=== PATIENT | female | born 1965 | race Caucasian/White ===

== ENCOUNTER → 2017-01-28 | Outpatient (CLI) | payer MEDICAID ==
--- NOTE | 2017-01-28 15:55 | BD ---
EXAMINATION TYPE: MG DEXA axial skeleton. DATE OF EXAM: 01/28/2017 1:37 PM COMPARISON: 07.30.2013 CLINICAL HISTORY: Z78.0 POST MENOPAUSAL Height: 228 Weight: 67 FRAX RISK QUESTIONS: Alcohol (3 or more units per day): NO Family History (Parent hip fracture): NO Glucocorticoids (More than 3mos): YES (Ex: prednisone, prednisolone, methylprednisolone, dexamethasone, and hydrocortisone). History of Fracture in Adulthood: NO Secondary Osteoporosis: NO 1. Type 1 Diabetes: NO 2. Hyperthyroidism: NO 3. Menopause before 45: NO 4. Malnutrition: 5. Chronic liver disease: NO Rheumatoid Arthritis: NO Current Tobacco Use: NO RISK FACTORS HISTORY OF: Other Fractures since Age 50: NO, THUMB...BEFORE AGE 50 Family History of Osteoporosis: NO Smoke tobacco: NO Drink Alcohol: SOCIAL Active: YES Diet low in dairy products/other sources of calcium: NO Postmenopausal woman: HYST AT AGE 46 YRS OLD Adrenal Insufficiency: NO MEDICATIONS: Prednisone or other steroids: ON AND OFF SINCE AGE 26 FOR PREDNISONE, LAST TAKEN 2 YRS AGO How Long: MANY YRS Additional Medications: CALCIUM AND VIT D, MEDS FOR REFLUX Additional History: ULCERATIVE COLITIS. EXAM MEASUREMENTS: Bone mineral densitometry was performed using the [employer] System. Bone mineral density as measured about the Lumbar spine is: ----- L1-L4(G/cm2): 1.206 T Score Values are as follows: ----- L1: -0.5 ----- L2: 0.6 ----- L3: 0.5 ----- L4: 0.1 ----- L1-L4: 0.2 Bone mineral density has: Increased 9.5% since study of: 07.30.2013 Bone mineral density about the R hip (g/cm2): 1.137 Bone mineral density about the L hip (g/cm2): 1.135 T Score values are as follows: -----R Neck: 0.1 -----L Neck: 0.3 -----R Total: 1.0 -----L Total: 1.0 Bone mineral density has: Increased 1.2% since study of: 07.30.2013 FRAX %'S: 4.3% CHANCE OF A MAJOR OSTEOPOROTIC FX AND A 0.1% CHANCE OF HIP FX....PROBABILITY OF FX IN 10 YRS TIME IMPRESSION: Normal (Values between +1 and -1 indicate normal bone mass). Consider repeating this study in 5 year s or sooner if there is some new clinical indication Bone density has improved 9.5% from 2013 within the lumbar spine. Bone density has improved 1.2% from 2013 within the bilateral hips NOTE: T-SCORE=SD OF THE YOUNG ADULT MEAN.
== END ==
LOC: RADBDWWP 12:16
PROVIDERS: ATTEND Obstetrics & Gynecology
DX: Z78.0 Asymptomatic menopausal state (principal)
CPT/HCPCS: 77080

== ENCOUNTER → 2017-01-31 | Outpatient (CLI) | payer MEDICAID ==
--- NOTE | 2017-02-02 10:21 | MM ---
Reason for exam: screening (asymptomatic). Last mammogram was performed 1 year and 7 months ago. History: Took hormonal contraceptives for 4 years. Physical Findings: A clinical breast exam by your physician is recommended on an annual basis and results should be correlated with mammographic findings. MG 3D Screening Mammo W/Cad Bilateral CC and MLO view(s) were taken. Prior study comparison: July 09, 2015, bilateral MG screening mammo w CAD. July 30, 2013, bilateral digital screening mammo w/CAD. March 13, 2012, bilateral digital screening mammo w/CAD. There are scattered fibroglandular densities. No significant changes when compared with prior studies. ASSESSMENT: Negative, BI-RAD 1 RECOMMENDATION: Routine screening mammogram of both breasts in 1 year.
== END | disposition home or self-care (01) ==
LOC: RADMAMWWP 10:54
PROVIDERS: ATTEND Family Medicine
DX: Z12.31 Encounter for screening mammogram for malignant neoplasm of breast (principal)
CPT/HCPCS: 77063; G0202

== ENCOUNTER 2017-04-15 08:19 | Day surgery (SDC) | payer MEDICAID ==
[2017-04-13 11:58] VITALS: BMI 35.0
[~2017-04-15 08:19] MED LIST: LACTATED RINGERS 1,000 ML IV SCH; LIDOCAINE 1% 20 ML VIAL (10MG/ML) FOR IV START INTRADERMA PRN
[2017-04-15 08:34] VITALS: TEMP 98.1
[2017-04-15] MEDS ORDERED: LACTATED RINGERS 1,000 ML IV ONE ×2 (08:42)
[2017-04-15] MEDS ORDERED: PROPOFOL 10 MG/ML 20 ML VIAL IV ONE ×3 (09:49→12:01)
--- NOTE | 2017-04-15 10:07 | P.PCN ---
Date of Procedure: 04/15/17 Preoperative Diagnosis: Postoperative Diagnosis: Procedure(s) Performed: BRIEF HISTORY: Patient is a 52-year-old pleasant 8 female, scheduled for an elective colonoscopy as a part of long-standing history of ulcerative colitis diagnosed at age 22. Last colonoscopy was in 3 years ago which showed no evidence of dysplasia. Patient is in clinical remission. PROCEDURE PERFORMED: Colonoscopy with biopsy. PREOPERATIVE DIAGNOSIS: Long-standing history of ulcerative colitis. IV sedation per Anesthesia. PROCEDURE: After informed consent was obtained, the patient, was brought into the endoscopy unit. IV sedation was administered by Anesthesia under continuous monitoring. Digital rectal examination was normal. Initially the Olympus CF- 160 flexible video colonoscope was then inserted in the rectum, gradually advanced into the cecum without any difficulty. Careful examination was performed as the scope was gradually being withdrawn. Ileocecal valve and the appendiceal orifice were visualized and appeared normal. Prep was excellent. Mucosa of the cecum, ascending colon, transverse colon, descending colon, showed scattered pseudopolyps but no active colitis. However in the sigmoid colon, and rectum the mucosa appeared erythematous and slightly friable consistent with mild active colitis. Biopsies were done throughout the entire colon at every 10 cm intervel.. Retroflexion was performed in the rectum and no lesions were seen. The patient tolerated the procedure well. IMPRESSION: Scattered pseudopolyps throughout the colon but no evidence of active colitis Mild proctosigmoiditis with mucosal erythema and friability but no ulcerations or erosions. RECOMMENDATIONS: Findings of this examination were discussed with the patient as well as a family. She was advised to follow with the biopsy results. If the biopsy did show evidence of active colitis she will need to be maintained on oral mesalamine. She can have a repeat colonoscopy in 2 years. Implants: Indications for Procedure: Operative Findings: Description of Procedure:
[2017-04-15] MEDS ORDERED: fentaNYL (PF) 50 MCG/ML 2 ML AMP ONE (10:08)
[2017-04-15] MEDS ORDERED: LIDOCAINE 1% INJ 10MG/ML (20 ML MDV) ONE (10:08)
[2017-04-15] MEDS ORDERED: MIDAZOLAM 2 MG/2 ML VIAL ONE (10:08)
[2017-04-15] MEDS ORDERED: GLYCOPYRROLATE 0.2 MG/ML 2 ML VIAL ONE (10:08)
[2017-04-15 10:10] VITALS: RESP 16
[2017-04-15 10:35] VITALS: BP 173/96; PULSE 65
== END 2017-04-15 11:13 | disposition home or self-care (01) ==
LOC: ORWHC2ENDO 08:19
PROVIDERS: ATTEND Internal Medicine Gastroenterology
DX: K51.90 Ulcerative colitis, unspecified, without complications (principal); K21.9 Gastro-esophageal reflux disease without esophagitis; Z79.899 Other long term (current) drug therapy; Z88.2 Allergy status to sulfonamides
CPT/HCPCS: 88305; 45380; J2250; J2001; J3010; J2704

== ENCOUNTER → 2017-09-26 | Outpatient (CLI) | payer MEDICAID ==
[2017-09-26 07:52] LABS: Basophils # (A) 0.1 k/uL (0-0.2); Basophils % (A) 1 %; Eosinophils # (A) 0.5 k/uL (0-0.7); Eosinophils % (A) 7 %; HCT 43.8 % (34.0-46.0); HGB 14.2 gm/dL (11.4-16.0); Lymphocytes # (A) 1.5 k/uL (1.0-4.8); Lymphocytes % (A) 21 %; MCH 29.8 pg (25.0-35.0); MCHC 32.4 g/dL (31.0-37.0); Mean Platelet Volume 8.6; Monocytes # (A) 0.3 k/uL (0-1.0); Monocytes % (A) 4 %; Neutrophils # (A) 4.7 k/uL (1.3-7.7); Neutrophils % (A) 65 %; Platelet Count 254 k/uL (150-450); RBC 4.77 m/uL (3.80-5.40); RDW 13.4 % (11.5-15.5); WBC 7.2 k/uL (3.8-10.6)
[2017-09-26 08:07] LABS: ALT 34 U/L (9-52); AST 21 U/L (14-36); Albumin 4.3 g/dL (3.5-5.0); Alkaline Phosphatase 85 U/L (38-126); Anion Gap 12 mmol/L; Blood Urea Nitrogen 15 mg/dL (7-17); Calcium 9.8 mg/dL (8.4-10.2); Carbon Dioxide 28 mmol/L (22-30); Chloride 102 mmol/L (98-107); Cholesterol 222 mg/dL (<200); Glucose 137 mg/dL (74-99); HDL Cholesterol 58 mg/dL (40-60); LDL Cholesterol,Calculated 131 mg/dL (0-99); Potassium 5.1 mmol/L (3.5-5.1); Sodium 142 mmol/L (137-145); Total Bilirubin 0.5 mg/dL (0.2-1.3); Total Protein 7.7 g/dL (6.3-8.2); Triglycerides 167 mg/dL (<150)
[2017-09-26 09:45] LABS: Erythrocyte Sedimentation Rate 19 mm/hr (0-20)
[2017-09-26 15:36] LABS: Folate, Serum 8.5 ng/mL
[2017-09-26 17:08] LABS: Hepatitis A Antibody IgM Non-Reactive (Non-Reactive); Hepatitis B Core IgM Non-Reactive (Non-Reactive)
[2017-09-26 20:08] LABS: Hemoglobin A1C 6.5 % (4.0-6.0)
[2017-09-27 19:05] LABS: Estrogens Total 117 pg/mL
== END | disposition home or self-care (01) ==
LOC: LABWHC1 06:53
PROVIDERS: ATTEND Family Medicine
DX: Z00.00 Encounter for general adult medical examination without abnormal findings (principal); E89.41 Symptomatic postprocedural ovarian failure; R41.3 Other amnesia; R73.9 Hyperglycemia, unspecified; Z11.59 Encounter for screening for other viral diseases
CPT/HCPCS: 36415; 80053; 80061; 80074; 82607; 82672; 82746; 83001; 83002; 83036; 84260; 84402; 84403; 84443; 85025; 85652; 86780

== ENCOUNTER → 2018-05-05 | Outpatient (CLI) | payer MEDICAID ==
--- NOTE | 2018-05-08 10:16 | MM ---
Reason for exam: screening (asymptomatic). Last mammogram was performed 1 year and 3 months ago. History: Took hormonal contraceptives for 4 years. Physical Findings: A clinical breast exam by your physician is recommended on an annual basis and results should be correlated with mammographic findings. MG 3D Screening Mammo W/Cad Bilateral CC and MLO view(s) were taken. Prior study comparison: January 31, 2017, bilateral MG 3d screening mammo w/cad. July 09, 2015, bilateral MG screening mammo w CAD. The breast tissue is heterogeneously dense. This may lower the sensitivity of mammography. Stable benign calcifications. There is no discrete abnormality. No significant changes when compared with prior studies. ASSESSMENT: Benign, BI-RAD 2 RECOMMENDATION: Routine screening mammogram of both breasts in 1 year.
== END | disposition home or self-care (01) ==
LOC: RADMAMWWP 11:06
PROVIDERS: ATTEND Obstetrics & Gynecology
DX: Z12.31 Encounter for screening mammogram for malignant neoplasm of breast (principal)
CPT/HCPCS: 77063; 77067

== ENCOUNTER → 2018-05-05 | Outpatient (CLI) | payer MEDICAID ==
[2018-05-05 15:25] LABS: Basophils # (A) 0.1 k/uL (0-0.2); Basophils % (A) 1 %; Eosinophils # (A) 0.4 k/uL (0-0.7); Eosinophils % (A) 5 %; HCT 43.8 % (34.0-46.0); HGB 14.3 gm/dL (11.4-16.0); Lymphocytes # (A) 1.8 k/uL (1.0-4.8); Lymphocytes % (A) 21 %; MCH 30.5 pg (25.0-35.0); MCHC 32.7 g/dL (31.0-37.0); MCV 93.3 fL (80.0-100.0); Mean Platelet Volume 8.5; Monocytes # (A) 0.4 k/uL (0-1.0); Monocytes % (A) 5 %; Neutrophils # (A) 5.5 k/uL (1.3-7.7); Neutrophils % (A) 67 %; Platelet Count 200 k/uL (150-450); RDW 13.8 % (11.5-15.5); WBC 8.2 k/uL (3.8-10.6)
[2018-05-05 15:40] LABS: C Reactive Protein 8.7 mg/L (<10.0); Uric Acid 5.1 mg/dL (3.7-7.4)
--- NOTE | 2018-05-05 16:43 | XR ---
Right foot HISTORY: Right foot pain 3 views of the right foot Soft tissue swelling suspected first digit right foot. Bone mineralization, joint spaces and alignmen t are maintained. No evident periostitis. There is a plantar calcaneal spur. No fracture or dislocati on evident. IMPRESSION: Soft tissue swelling first digit. Follow-up as indicated.
[2018-05-05 16:53] LABS: Erythrocyte Sedimentation Rate 8 mm/hr (0-20)
[2018-05-06 00:44] LABS: Rheumatoid Factor 8 IU/mL (0-15)
[2018-05-06 01:08] LABS: Cyclic Citrullinated Pep IgG NEGATIVE (NEGATIVE)
== END | disposition home or self-care (01) ==
LOC: LABWHC1 13:36
PROVIDERS: ATTEND Podiatrist Foot & Ankle Surgery
DX: M79.89 Other specified soft tissue disorders (principal); M79.676 Pain in unspecified toe(s); M19.90 Unspecified osteoarthritis, unspecified site; B99.9 Unspecified infectious disease
CPT/HCPCS: 36415; 84550; 85025; 85652; 86038; 86140; 86200; 86431

== ENCOUNTER → 2018-06-30 | Outpatient (CLI) | payer MEDICAID ==
[2018-06-30 13:26] LABS: ALT 34 U/L (9-52); AST 26 U/L (14-36); Albumin 4.4 g/dL (3.5-5.0); Alkaline Phosphatase 76 U/L (38-126); Anion Gap 11 mmol/L; Blood Urea Nitrogen 15 mg/dL (7-17); Calcium 9.7 mg/dL (8.4-10.2); Carbon Dioxide 24 mmol/L (22-30); Chloride 103 mmol/L (98-107); Glucose 104 mg/dL (74-99); Potassium 4.9 mmol/L (3.5-5.1); Sodium 138 mmol/L (137-145); Total Bilirubin 1.3 mg/dL (0.2-1.3); Total Protein 7.5 g/dL (6.3-8.2)
== END | disposition home or self-care (01) ==
LOC: LABWHC1 12:50
PROVIDERS: ATTEND Family Medicine
DX: E11.9 Type 2 diabetes mellitus without complications (principal); E89.41 Symptomatic postprocedural ovarian failure
CPT/HCPCS: 36415; 80053; 82672; 84270; 84402; 84403

== ENCOUNTER → 2019-03-19 | Outpatient (CLI) | payer BC ==
[2019-03-19 07:36] LABS: Basophils % (A) 1 %; Eosinophils # (A) 0.2 k/uL (0-0.7); Eosinophils % (A) 3 %; HGB 14.4 gm/dL (11.4-16.0); Lymphocytes # (A) 1.9 k/uL (1.0-4.8); Lymphocytes % (A) 33 %; MCH 31.1 pg (25.0-35.0); MCHC 32.8 g/dL (31.0-37.0); MCV 94.8 fL (80.0-100.0); Mean Platelet Volume 8.9; Monocytes # (A) 0.3 k/uL (0-1.0); Monocytes % (A) 5 %; Neutrophils # (A) 3.3 k/uL (1.3-7.7); Neutrophils % (A) 56 %; Platelet Count 179 k/uL (150-450); RBC 4.64 m/uL (3.80-5.40); RDW 13.7 % (11.5-15.5)
[2019-03-19 10:38] LABS: African American GFR (CKD) 118.1 (60.0-200.0); Albumin 4.3 g/dL (3.80-4.90); Albumin/Globulin Ratio 1.95 (1.60-3.17); Anion Gap 5.6 mmol/L (4.00-12.00); Calcium 9.2 mg/dL (8.7-10.3); Carbon Dioxide 28.4 mmol/L (21.6-31.8); Globulin 2.2 g/dL (1.6-3.3); Potassium 4.7 mmol/L (3.5-5.5); Total Bilirubin 0.6 mg/dL (0.2-1.2); Total Protein 6.5 g/dL (6.2-8.2)
== END | disposition home or self-care (01) ==
LOC: LABWHC1 06:53
PROVIDERS: ATTEND Family Medicine
DX: Z00.00 Encounter for general adult medical examination without abnormal findings (principal)
CPT/HCPCS: 36415; 80053; 80061; 84443; 85025

== ENCOUNTER → 2019-07-02 | Outpatient (CLI) | payer BC ==
--- NOTE | 2019-07-04 08:25 | MM ---
Reason for exam: screening (asymptomatic). Last mammogram was performed 1 year and 2 months ago. History: Took hormonal contraceptives for 4 years. Physical Findings: A clinical breast exam by your physician is recommended on an annual basis and results should be correlated with mammographic findings. MG 3D Screening Mammo W/Cad Bilateral CC and MLO view(s) were taken. Prior study comparison: May 05, 2018, bilateral MG 3d screening mammo w/cad. January 31, 2017, bilateral MG 3d screening mammo w/cad. The breast tissue is almost entirely fat. No significant changes when compared with prior studies. ASSESSMENT: Negative, BI-RAD 1 RECOMMENDATION: Routine screening mammogram of both breasts in 1 year.
== END | disposition home or self-care (01) ==
LOC: RADMAMWWP 13:47
PROVIDERS: ATTEND Family Medicine
DX: Z12.31 Encounter for screening mammogram for malignant neoplasm of breast (principal)
CPT/HCPCS: 77063; 77067

== ENCOUNTER → 2020-04-10 | Outpatient (CLI) | payer MEDICAID, BC ==
[2020-04-10 10:12] LABS: Basophils # (A) 0.1 k/uL (0-0.2); Basophils % (A) 1 %; Eosinophils # (A) 0.3 k/uL (0-0.7); Eosinophils % (A) 4 %; HCT 45.9 % (34.0-46.0); HGB 14.6 gm/dL (11.4-16.0); Lymphocytes # (A) 1.8 k/uL (1.0-4.8); Lymphocytes % (A) 29 %; MCH 30.6 pg (25.0-35.0); MCHC 31.8 g/dL (31.0-37.0); MCV 96.3 fL (80.0-100.0); Mean Platelet Volume 8.9; Monocytes # (A) 0.3 k/uL (0-1.0); Monocytes % (A) 4 %; Neutrophils # (A) 3.6 k/uL (1.3-7.7); Neutrophils % (A) 59 %; Platelet Count 207 k/uL (150-450); RBC 4.76 m/uL (3.80-5.40); RDW 12.9 % (11.5-15.5); WBC 6.1 k/uL (3.8-10.6)
[2020-04-10 10:23] LABS: ALT 21 U/L (4-34); AST 25 U/L (14-36); African American GFR (CKD) >90 (>60 ml/min/1.73 sqM); Albumin 4.5 g/dL (3.5-5.0); Alkaline Phosphatase 83 U/L (38-126); Anion Gap 8 mmol/L; Blood Urea Nitrogen 14 mg/dL (7-17); Calcium 9.6 mg/dL (8.4-10.2); Carbon Dioxide 24 mmol/L (22-30); Chloride 107 mmol/L (98-107); Cholesterol 256 mg/dL (<200); Glucose 114 mg/dL (74-99); HDL Cholesterol 75 mg/dL (40-60); LDL Cholesterol,Calculated 155 mg/dL (0-99); Non-African American GFR(CKD) >90 (>60 ml/min/1.73 sqM); Potassium 5.2 mmol/L (3.5-5.1); Sodium 139 mmol/L (137-145); Total Protein 7.7 g/dL (6.3-8.2); Triglycerides 131 mg/dL (<150)
--- NOTE | 2020-04-10 13:18 | ECHOS ---
STRESS ECHOCARDIOGRAM LUMASON: - Vial INDICATIONS: Chest pain. MEDICATIONS: BASELINE HEART RATE: 85 BASELINE BLOOD PRESSURE: 146/98 MAXIMUM HEART RATE: 155 MAXIMUM BLOOD PRESSURE: 211/89 85% MPHR: 139 100% MPHR: 163 METS: 7.3 MAXIMUM STAGE REACHED: II TOTAL EXERCISE TIME: 6:00 CLINICAL INFORMATION: DATE OF SERVICE: 04/10/2020 Baseline EKG revealed normal sinus rhythm without significant ST-T changes. Patient walked on standard Eduardo protocol for 6 minutes, achieved a maximal heart rate of 155 beats per minute which is well above 85% of predicted maximal. She developed fatigue, shortness of breath. Rare PVCs. She did not have any angina or arrhythmia. EKG did not reveal any ST-segment changes to indicate ischemia. By EKG criteria, this is a negative stress test with limited exercise capacity. Peak blood pressure was 211/89. There was hypertensive response to exercise. Baseline echo images revealed normal wall motion wall thickening of all segments. To enhance the quality of images, echo contrast was administered. At peak exercise, there was good augmentation of left ventricular wall motion and wall thickening of all segments suggesting that there is no stress-induced ischemia on this study. IMPRESSION: 1. By EKG criteria, this is a negative stress test with limited exercise capacity. Patient had hypertensive response to exercise. 2. Normal stress echocardiogram without evidence of ischemia. MMODL / IJN: [id number] /
== END | disposition home or self-care (01) ==
LOC: RADNMMAIN 08:52
PROVIDERS: ATTEND Family Medicine
DX: I10 Essential (primary) hypertension (principal); R07.9 Chest pain, unspecified
CPT/HCPCS: 93351; 80061; 80053; 84443; 85025; 36415; Q9950

== ENCOUNTER → 2020-08-12 | Outpatient (CLI) | payer BC ==
--- NOTE | 2020-08-13 12:10 | MM ---
Reason for exam: screening (asymptomatic). Last mammogram was performed 1 year and 1 month ago. History: Took hormonal contraceptives for 4 years. Physical Findings: A clinical breast exam by your physician is recommended on an annual basis and results should be correlated with mammographic findings. MG Screening Mammo w CAD Bilateral CC and MLO view(s) were taken. Prior study comparison: July 02, 2019, bilateral MG 3d screening mammo w/cad. May 05, 2018, bilateral MG 3d screening mammo w/cad. The breast tissue is almost entirely fat. No significant changes when compared with prior studies. ASSESSMENT: Benign, BI-RAD 2 RECOMMENDATION: Routine screening mammogram of both breasts in 1 year.
== END | disposition home or self-care (01) ==
LOC: RADMAMWWP 09:15
PROVIDERS: ATTEND Family Medicine
DX: Z12.31 Encounter for screening mammogram for malignant neoplasm of breast (principal)
CPT/HCPCS: 77067

== ENCOUNTER 2020-09-10 07:16 | Day surgery (SDC) | payer BC ==
[2020-09-03 11:32] VITALS: BMI 30.1
[~2020-09-10 07:16] MED LIST changes: -LIDOCAINE 1% 20 ML VIAL (10MG/ML) FOR IV START INTRADERMA PRN
[2020-09-10] MEDS ORDERED: LACTATED RINGERS 1,000 ML IV ONE (07:46)
[2020-09-10 08:07] VITALS: RESP 16; TEMP 97.8
[2020-09-10 08:07] LABS: Glucose,Whole Blood 116 mg/dL (75-99)
[2020-09-10] MEDS ORDERED: fentaNYL (PF) 50 MCG/ML 2 ML AMP ONE (08:32)
[2020-09-10] MEDS ORDERED: LIDOCAINE 1% INJ 10MG/ML (20 ML MDV) ONE (08:32)
[2020-09-10] MEDS ORDERED: PROPOFOL 10 MG/ML 20 ML VIAL IV ONE (08:32)
--- NOTE | 2020-09-10 08:54 | P.PCN ---
Date of Procedure: 09/10/20 Procedure(s) Performed: BRIEF HISTORY: Patient is a 55-year-old pleasant female scheduled for an elective colonoscopy as a part of evaluation of long-standing history of ulcerative colitis diagnosed. At age 22. Her last colonoscopy was 3 years ago. PROCEDURE PERFORMED: Colonoscopy with random biopsy. PREOPERATIVE DIAGNOSIS: Long-standing history of ulcerative colitis. IV sedation per Anesthesia. PROCEDURE: After informed consent was obtained, the patient, was brought into the endoscopy unit. IV sedation was administered by Anesthesia under continuous monitoring. Digital rectal examination was normal. Initially the Olympus CF-160 flexible video colonoscope was then inserted in the rectum, gradually advanced into the cecum without any difficulty. Careful examination was performed as the scope was gradually being withdrawn. Ileocecal valve and the appendiceal orifice were visualized and appeared normal. Prep was excellent. Mucosa of the cecum, ascending colon, transverse colon, appeared normal. There was scattered pseudopolyps in the descending and sigmoid colon descending colon, sigmoid colon, and rectum appeared normal. Random biopsies were done from the cecum to rectum at every 10 cm intervals. Retroflexion was performed in the rectum and no lesions were seen. The patient tolerated the procedure well. IMPRESSION: Scattered pseudopolyps noted in the colon but no evidence of active colitis or colorectal neoplasia RECOMMENDATIONS: Findings of this examination were discussed with the patient as well as a family. She was advised to follow with the biopsy results.. If the biopsy shows no evidence of dysplasia he can have a repeat colonoscopy in 2- 3 years.
[2020-09-10 09:07] VITALS: BP 130/80; PULSE 78
== END 2020-09-10 09:27 | disposition home or self-care (01) ==
LOC: ORWHC2ENDO 07:16
PROVIDERS: ATTEND Internal Medicine Gastroenterology
DX: K51.90 Ulcerative colitis, unspecified, without complications (principal); K63.89 Other specified diseases of intestine; E11.9 Type 2 diabetes mellitus without complications; Z88.2 Allergy status to sulfonamides; K21.9 Gastro-esophageal reflux disease without esophagitis; Z79.84 Long term (current) use of oral hypoglycemic drugs; Z79.899 Other long term (current) drug therapy; Z90.710 Acquired absence of both cervix and uterus; Z90.89 Acquired absence of other organs
CPT/HCPCS: 88305; 45380; J2001; J3010; J2704

== ENCOUNTER → 2021-07-06 | Outpatient (CLI) | payer BC ==
--- NOTE | 2021-07-06 14:00 | MM ---
Reason for exam: clinical finding. Last mammogram was performed 11 months ago. History: Took hormonal contraceptives for 4 years. Took other hormone beginning at age 54. Physical Findings: Nurse Summary: 0.5-1cm nodule in the left breast at 10-11 o'clock (nurse db). MG 3D Diag Mammo W/Cad LT CC and MLO view(s) were taken of the left breast. Prior study comparison: August 12, 2020, bilateral MG screening mammo w CAD. July 02, 2019, bilateral MG 3d screening mammo w/cad. There are scattered fibroglandular densities. 1.1cm nodule at 12 o'clock approximately 5.4cm from nipple. These results were verbally communicated with the patient and result sheet given to the patient on 07/06/21. ASSESSMENT: Incomplete: need additional imaging evaluation, BI-RAD 0 RECOMMENDATION: Ultrasound of the left breast.
--- NOTE | 2021-07-06 14:02 | USB ---
Reason for exam: additional evaluation requested from abnormal screening. History: Took hormonal contraceptives for 4 years. Took other hormone beginning at age 54. US Breast Limited LT Technologist: Rachel Gillis Left limited breast ultrasound including focal area of concern, retroareolar and axilla demonstrates a 1.1 x 0.9 x 0.4cm questionable hematoma versus cyst at 11 o'clock. These results were verbally communicated with the patient and result sheet given to the patient on 07/06/21. ASSESSMENT: Probably benign, BI-RAD 3 RECOMMENDATION: Ultrasound of the left breast in 3 months. Manage patient on a clinical basis.
== END | disposition home or self-care (01) ==
LOC: RADMAMWWP 12:41
PROVIDERS: ATTEND Obstetrics & Gynecology
DX: N64.89 Other specified disorders of breast (principal)
CPT/HCPCS: 77061; 77065

== ENCOUNTER → 2021-08-29 | Outpatient (CLI) | payer BC ==
[2021-08-29 13:01] LABS: Basophils # (A) 0.05 X 10*3/uL (0.00-0.10); Basophils % (A) 0.9 %; Eosinophils # (A) 0.26 X 10*3/uL (0.04-0.35); Eosinophils % (A) 4.9 %; HCT 43.9 % (37.2-46.3); HGB 14.4 g/dL (12.0-15.0); Lymphocytes # (A) 1.81 X 10*3/uL (0.90-5.00); MCH 31.2 pg (27.0-32.0); MCHC 32.8 g/dL (32.0-37.0); MCV 95.2 fL (80.0-97.0); Monocytes # (A) 0.39 X 10*3/uL (0.20-1.00); Monocytes % (A) 7.3 %; Neutrophils # (A) 2.79 X 10*3/uL (1.80-7.70); Neutrophils % (A) 52.5 %; Platelet Count 213 X 10*3/uL (140-440); RBC 4.61 X 10*6/uL (4.10-5.20); RDW 12.7 % (11.5-14.5); WBC 5.32 X 10*3/uL (4.50-10.00)
[2021-08-29 13:23] LABS: ALT 23 U/L (8-44); AST 21 U/L (13-35); African American GFR (CKD) 114.1 (60.0-200.0); Albumin 4.5 g/dL (3.8-4.9); Albumin/Globulin Ratio 1.78 (1.60-3.17); Alkaline Phosphatase 91 U/L (41-126); BUN/Creat Ratio 24.26 Ratio (12.00-20.00); Blood Urea Nitrogen 15.5 mg/dL (9.0-27.0); Calcium 9.3 mg/dL (8.7-10.3); Chloride 103 mmol/L (96-109); Chol/HDL Ratio 3.84 Ratio; Globulin 2.5 g/dL (1.6-3.3); Glucose 89 mg/dL (70-110); LDL Cholesterol,Calculated 159.7 mg/dL (0.0-131.0); Non-African American GFR(CKD) 98.4 (60.0-200.0); Potassium 4.8 mmol/L (3.5-5.5); Sodium 140 mmol/L (135-145); VLDL Calculation 19.96 mg/dL (5.00-40.00)
== END | disposition home or self-care (01) ==
LOC: LABWHC1 09:53
PROVIDERS: ATTEND Family Medicine
DX: Z00.00 Encounter for general adult medical examination without abnormal findings (principal)
CPT/HCPCS: 36415; 80053; 80061; 84443; 85025

== ENCOUNTER → 2021-10-15 | Outpatient (CLI) | payer BC ==
--- NOTE | 2021-10-15 15:21 | BD ---
EXAMINATION TYPE: Axial Bone Density DATE OF EXAM: 10/15/2021 COMPARISON: 01.28.2017 CLINICAL HISTORY: 56 YR OLD FEMALE.....ICD-10 CODE: Z78.0 MENOPAUSAL Height: 65.5 Weight: 210 FRAX RISK QUESTIONS: Family History (Parent hip fracture): NO FX RISK FACTORS HISTORY OF: Family History of Osteoporosis: YES, MOTHER NO FX Active: YES Postmenopausal woman: YES, AT AGE 48 HYST AT 43 PARTIAL Take estrogen and/or progesterone medications: TESTOSTERONE, X 4 YRS, NONE NOW Hyperparathyroidism: NO Adrenal Insufficiency: NO MEDICATIONS: Additional Medications: MULTIVITAMIN WITH CA AND VIT D Additional History: NOTHING TO NOTE HERE EXAM MEASUREMENTS: Bone mineral densitometry was performed using the [employer] System. Bone mineral density as measured about the Lumbar spine is: ----- L1-L4(G/cm2): 1.146 T Score Values are as follows: ----- L1: -0.7 ----- L2: 0.1 ----- L3: 0.0 ----- L4: -0.6 ----- L1-L4: -0.3 Bone mineral density has: Decreased -5.8% since study of: 01.28.2017 Bone mineral density about the R hip (g/cm2): 1.073 Bone mineral density about the L hip (g/cm2): 1.063 T Score values are as follows: -----R Neck: -0.5 -----L Neck: -0.5 -----R Total: 0.5 -----L Total: 0.4 Bone mineral density has: Decreased -6.0% since study of: 01.28.2017 FRAX%s: THERE IS A 5.8% CHANCE FOR A MAJOR OSTEOPOROTIC FX AND A 0.2% FOR HIP.......PROBABILITY FO R FX IN 10 YRS TIME IMPRESSION: Normal (Values between +1 and -1 indicate normal bone mass). Consider repeating this study in 5 year s or sooner if there is some new clinical indication. NOTE: T-SCORE=SD OF THE YOUNG ADULT MEAN.
== END | disposition home or self-care (01) ==
LOC: RADBDWWP 08:17
PROVIDERS: ATTEND Obstetrics & Gynecology
DX: Z78.0 Asymptomatic menopausal state (principal)
CPT/HCPCS: 77080

== ENCOUNTER → 2021-10-29 | Outpatient (CLI) | payer BC ==
--- NOTE | 2021-10-29 14:43 | MM ---
Reason for exam: follow-up at short interval from prior study. Last mammogram was performed 4 months ago. History: Took hormonal contraceptives for 4 years. Took other hormone beginning at age 54. Physical Findings: Nurse did not find any significant physical abnormalities on exam. MG 3D Diag Mammo W/Cad JENNY Bilateral CC and MLO view(s) were taken. Prior study comparison: July 06, 2021, left breast MG 3d diag mammo w/cad LT. August 12, 2020, bilateral MG screening mammo w CAD. There are scattered fibroglandular densities. Residual vague density superior left MLO, post 4 months, density not on CC view. No significant new findings when compared with previous films. These results were verbally communicated with the patient and result sheet given to the patient on 10/29/21. ASSESSMENT: Incomplete: need additional imaging evaluation, BI-RAD 0 RECOMMENDATION: Ultrasound of the left breast.
--- NOTE | 2021-10-29 14:45 | USB ---
Reason for exam: additional evaluation requested from abnormal screening. History: Took hormonal contraceptives for 4 years. Took other hormone beginning at age 54. US Breast Limited LT Technologist: Rachel Gillis Left limited breast ultrasound including focal area of concern, retroareolar and axilla demonstrates no cystic or solid lesion seen. Scanned 10-12 o'clock. Previous area not visualized. These results were verbally communicated with the patient and result sheet given to the patient on 10/29/21. ASSESSMENT: Probably benign, BI-RAD 3 RECOMMENDATION: Follow-up diagnostic mammogram of the left breast in 6 months.
== END | disposition home or self-care (01) ==
LOC: RADMAMWWP 13:37
PROVIDERS: ATTEND Obstetrics & Gynecology
DX: R92.8 Other abnormal and inconclusive findings on diagnostic imaging of breast (principal)
CPT/HCPCS: 77062; 77066

== ENCOUNTER → 2023-02-11 | Outpatient (CLI) | payer BC ==
[2023-02-11 11:09] LABS: Basophils # (A) 0.06 X 10*3/uL (0.00-0.10); Basophils % (A) 1.1 %; Eosinophils % (A) 10.7 %; HCT 43.5 % (37.2-46.3); HGB 14.2 g/dL (12.0-15.0); Immature Grans, Automated 0.5 %; Lymphocytes # (A) 2.07 X 10*3/uL (0.90-5.00); Lymphocytes % (A) 36.8 %; MCH 31.3 pg (27.0-32.0); MCHC 32.6 g/dL (32.0-37.0); Mean Platelet Volume 10.4 fL (9.5-12.2); Monocytes # (A) 0.43 X 10*3/uL (0.20-1.00); Monocytes % (A) 7.6 %; NRBC Per 100 WBC 0 /100 WBCS (0.0-0.0); Neutrophils # (A) 2.44 X 10*3/uL (1.80-7.70); Neutrophils % (A) 43.3 %; Platelet Count 221 X 10*3/uL (140-440); RBC 4.53 X 10*6/uL (4.10-5.20); WBC 5.63 X 10*3/uL (4.50-10.00)
[2023-02-11 16:50] LABS: Chol/HDL Ratio 4.04 Ratio; LDL Cholesterol,Calculated 138.9 mg/dL (0.0-131.0)
== END | disposition home or self-care (01) ==
LOC: LABWHC1 07:43
PROVIDERS: ATTEND Nurse Practitioner Adult Health
DX: E11.9 Type 2 diabetes mellitus without complications (principal)
CPT/HCPCS: 36415; 80061; 84439; 84443; 85025

== ENCOUNTER → 2023-03-08 | Outpatient (CLI) | payer BC ==
[2023-03-08 08:23] LABS: Basophils # (A) 0.1 k/uL (0-0.2); Basophils % (A) 1 %; Eosinophils # (A) 0.7 k/uL (0-0.7); Eosinophils % (A) 8 %; HCT 42.9 % (34.0-46.0); HGB 13.5 gm/dL (11.4-16.0); Lymphocytes # (A) 1.1 k/uL (1.0-4.8); Lymphocytes % (A) 13 %; MCH 31.2 pg (25.0-35.0); MCHC 31.5 g/dL (31.0-37.0); MCV 99.1 fL (80.0-100.0); Mean Platelet Volume 8.5; Monocytes # (A) 0.5 k/uL (0-1.0); Monocytes % (A) 6 %; Neutrophils # (A) 5.9 k/uL (1.3-7.7); Neutrophils % (A) 71 %; Platelet Count 266 k/uL (150-450); RBC 4.33 m/uL (3.80-5.40); RDW 12.7 % (11.5-15.5); WBC 8.3 k/uL (3.8-10.6)
== END | disposition home or self-care (01) ==
LOC: LABWHC1 07:20
PROVIDERS: ATTEND Nurse Practitioner Adult Health
DX: K92.1 Melena (principal)
CPT/HCPCS: 36415; 85025

== ENCOUNTER → 2023-05-09 | Outpatient (CLI) | payer BC ==
--- NOTE | 2023-05-09 14:46 | USB ---
Patient History: Menarche at age 9. First Full-Term at age 24. Hysterectomy at age 44. Patient used Hormonal Contraceptives for 4 years. Risk Values: Pat 5 year model risk: 1.8%. NCI Lifetime model risk: 8.9%. Prior Study Comparison: 08/12/2020 Bilateral Screening Mammogram, [facility]. 07/06/2021 Left Diagnostic Mammogram, [facility]. 10/29/2021 Bilateral Diagnostic Mammogram, [facility]. Findings: Imaged: Ultrasound imaging of: All 4 quadrants, the retroareolar region and axilla. No evidence for organizing fluid collection or mass. Overall Assessment: Negative, BI-RAD 1 Management: Screening Mammogram of both breasts in 1 year. A clinical breast exam by your physician is recommended on an annual basis and results should be correlated with mammographic findings. This exam should not preclude additional follow-up of suspicious palpable abnormalities. Results were given to the patient verbally at the time of exam. Electronically signed and approved by: Alan Danielle DO
--- NOTE | 2023-05-09 14:46 | MM ---
Reason for Exam: Additional evaluation requested from prior study. Last mammogram was performed 1 year(s) and 6 month(s) ago. Patient History: Menarche at age 9. First Full-Term at age 24. Hysterectomy at age 44. Patient used Hormonal Contraceptives for 4 years. Risk Values: Pat 5 year model risk: 1.8%. NCI Lifetime model risk: 8.9%. Prior Study Comparison: 03/13/2012 Bilateral Screening Mammogram, [facility]. 07/30/2013 Bilateral Screening Mammogram, [facility]. 07/09/2015 Bilateral Screening Mammogram, [facility]. 01/31/2017 Bilateral Screening Mammogram, [facility]. 05/05/2018 Bilateral Screening Mammogram, [facility]. 07/02/2019 Bilateral Screening Mammogram, [facility]. 08/12/2020 Bilateral Screening Mammogram, [facility]. 07/06/2021 Left Diagnostic Mammogram, [facility]. 07/06/2021 Left Diagnostic Ultrasound, [facility]. 10/29/2021 Bilateral Diagnostic Mammogram, [facility]. 10/29/2021 Left Diagnostic Ultrasound, [facility]. Tissue Density: The breast tissue is almost entirely fat. Findings: Analyzed By CAD. Right breast biopsy clip. No suspicious finding in the left breast. No new suspicious masses, calcifications or distortions. Overall Assessment: Incomplete: need additional imaging evaluation, BI-RAD 0 Management: Diagnostic Breast Ultrasound of the right breast. Results were given to the patient verbally at the time of exam. Patient should continue monthly self-breast exams. A clinical breast exam by your physician is recommended on an annual basis. This exam should not preclude additional follow-up of suspicious palpable abnormalities. Note on Pat scores and lifetime risk: 1. A Pat score greater than 3% is considered moderate risk. If this is the case, consider specialist referral to assess eligibility for a risk reducing agent. 2. If overall lifetime risk for the development of breast cancer is 20% or higher, the patient may qualify for future screening with alternating mammogram and breast MRI. Electronically signed and approved by: Alan Danielle DO
== END | disposition home or self-care (01) ==
LOC: RADMAMWWP 12:24
PROVIDERS: ATTEND Family Medicine
DX: R92.8 Other abnormal and inconclusive findings on diagnostic imaging of breast (principal)
CPT/HCPCS: 77062; 77066

== ENCOUNTER → 2023-07-21 | Outpatient (CLI) | payer BC | LOC: LABWHC1 11:44 | PROVIDERS: ATTEND Family Medicine | DX: Z53.9 Procedure and treatment not carried out, unspecified reason (principal) ==

== ENCOUNTER → 2023-08-09 | Outpatient (CLI) | payer BC ==
[~2023-08-09] MED LIST changes: +IRON SUCROSE 200 MG in SODIUM CHLORIDE 0.9% 100 ML IVPB NR; -LACTATED RINGERS 1,000 ML IV SCH; +SODIUM CHLORIDE 0.9% 500 ML 500 ML in EMPTY BAG 1 BAG IV PRN
[2023-08-09 14:39] VITALS: BP 151/90; PULSE 93; RESP 16; TEMP 97.8
== END ==
LOC: PROCWHC3 14:04
PROVIDERS: ATTEND Family Medicine
DX: D64.9 Anemia, unspecified (principal)
CPT/HCPCS: 96365; J1756

== ENCOUNTER → 2023-08-16 | Outpatient (CLI) | payer BC ==
[2023-08-16 14:55] LABS: Basophils # (A) 0.1 k/uL (0-0.2); Basophils % (A) 1 %; Eosinophils # (A) 0.2 k/uL (0-0.7); Eosinophils % (A) 3 %; HCT 41.7 % (34.0-46.0); HGB 13.2 gm/dL (11.4-16.0); Lymphocytes # (A) 1.6 k/uL (1.0-4.8); Lymphocytes % (A) 21 %; MCH 27.9 pg (25.0-35.0); MCHC 31.8 g/dL (31.0-37.0); MCV 87.7 fL (80.0-100.0); Mean Platelet Volume 8.6; Monocytes # (A) 0.3 k/uL (0-1.0); Monocytes % (A) 4 %; Neutrophils # (A) 5.2 k/uL (1.3-7.7); Neutrophils % (A) 70 %; Platelet Count 271 k/uL (150-450); RBC 4.75 m/uL (3.80-5.40); RDW 14.5 % (11.5-15.5); WBC 7.5 k/uL (3.8-10.6)
[2023-08-16 15:05] LABS: ALT 18 U/L (4-34); AST 21 U/L (14-36); African American GFR (CKD) 86 (>60 ml/min/1.73 sqM); Albumin 4.6 g/dL (3.5-5.0); Albumin/Globulin Ratio 1.4; Alkaline Phosphatase 84 U/L (38-126); Anion Gap 10 mmol/L; Blood Urea Nitrogen 20 mg/dL (7-17); Calcium 10.4 mg/dL (8.4-10.2); Carbon Dioxide 27 mmol/L (22-30); Chloride 101 mmol/L (98-107); Globulin 3.2 g/dL; Glucose 156 mg/dL (74-99); Non-African American GFR(CKD) 75 (>60 ml/min/1.73 sqM); Potassium 4.8 mmol/L (3.5-5.1); Sodium 138 mmol/L (137-145); Total Bilirubin 0.7 mg/dL (0.2-1.3); Total Protein 7.8 g/dL (6.3-8.2)
[2023-08-16 18:52] LABS: % Iron Saturation 12.92 (12.00-45.00); Iron 58 UG/DL (50-170); Total Iron Binding Capacity 449 UG/DL (228-460)
== END | disposition home or self-care (01) ==
LOC: LABWHC1 13:59
PROVIDERS: ATTEND Family Medicine
DX: E61.1 Iron deficiency (principal); Z79.899 Other long term (current) drug therapy
CPT/HCPCS: 36415; 80053; 82607; 82728; 82746; 83540; 83550; 85025

== ENCOUNTER → 2023-10-19 | Outpatient (CLI) | payer BC ==
--- NOTE | 2023-10-19 14:58 | BD ---
EXAMINATION TYPE: Axial Bone Density DATE OF EXAM: 10/19/2023 CLINICAL HISTORY: 58 years old Female. ICD-10 CODE: N95.1 POST MENOPAUSAL Height: 65.2 in Weight: 196 lbs FRAX RISK QUESTIONS: History of Fracture in Adulthood: lt thumb age 33 Secondary Osteoporosis: 3. Menopause before 45: partial hysterectomy age 38 EXAM MEASUREMENTS: Bone mineral densitometry was performed using the [employer] System. Bone mineral density as measured about the Lumbar spine is: ----- L1-L4(G/cm2): 1.1004 T Score Values are as follows: ----- L1: -1.3 ----- L2: -0.1 ----- L3: -0.2 ----- L4: -1.0 ----- L1-L4: -0.6 Z Score Values are as follows: ----- L1: -0.8 ----- L2: 0.4 ----- L3: 0.2 ----- L4: -0.6 ----- L1-L4: -0.2 Bone mineral density has: Decreased -3.7% since study of: 10/15/2021 Bone mineral density about the R hip (g/cm2): 1.011 Bone mineral density about the L hip (g/cm2): 0.982 T Score values are as follows: -----R Neck: -0.8 -----L Neck: -1.0 -----R Total: 0.0 -----L Total: -0.2 Z Score values are as follows: -----R Neck: 0.0 -----L Neck: -0.3 -----R Total: 0.4 -----L Total: 0.2 Bone mineral density has: Decreased -6.6% since study of: 10/15/2021 FRAX%s: The graph provided illustrates a 11.8% chance for a major osteoporotic fx and a 0.7% chance f or the hips probability for fx in 10 years time. IMPRESSION: Osteopenia (T Score between -2.5 and -1). There is slightly increased risk of fracture and the patient may be considered for treatment. Re-Screen 2-5 years. NOTE: T-SCORE=SD OF THE YOUNG ADULT MEAN.
== END | disposition home or self-care (01) ==
LOC: RADBDWWP 13:50
PROVIDERS: ATTEND Obstetrics & Gynecology
DX: M85.89 Other specified disorders of bone density and structure, multiple sites (principal); N95.1 Menopausal and female climacteric states
CPT/HCPCS: 77080

== ENCOUNTER → 2024-04-11 | Outpatient (CLI) | payer BC ==
[2024-04-11 10:33] LABS: Basophils # (A) 0.05 X 10*3/uL (0.00-0.10); Basophils % (A) 0.9 %; Eosinophils # (A) 0.21 X 10*3/uL (0.04-0.35); Eosinophils % (A) 3.6 %; HCT 42.4 % (37.2-46.3); HGB 14.2 g/dL (12.0-15.0); Lymphocytes % (A) 27.3 %; MCH 31.6 pg (27.0-32.0); MCHC 33.5 g/dL (32.0-37.0); MCV 94.2 FL (80.0-97.0); Mean Platelet Volume 11.1 FL (9.5-12.2); Monocytes # (A) 0.37 X 10*3/uL (0.20-1.00); Monocytes % (A) 6.3 %; NRBC Per 100 WBC 0 X 10*3/uL (0.00-0.01); Neutrophils % (A) 61.4 %; Platelet Count 240 X 10*3/uL (140-440); RDW 12.4 % (11.5-14.5); WBC 5.86 X 10*3/uL (4.50-10.00)
[2024-04-11 10:58] LABS: % Iron Saturation 20.51 (12.00-45.00); Ferritin 48.6 ng/mL (10.0-291.0)
== END | disposition home or self-care (01) ==
LOC: LABWHC1 07:47
PROVIDERS: ATTEND Family Medicine
DX: E61.1 Iron deficiency (principal); R68.89 Other general symptoms and signs; Z79.899 Other long term (current) drug therapy
CPT/HCPCS: 36415; 82607; 82728; 82746; 83540; 83550; 85025

== ENCOUNTER → 2024-07-24 | Outpatient (CLI) | payer BC ==
--- NOTE | 2024-07-28 17:28 | MM ---
Reason for Exam: Screening (asymptomatic). Last mammogram was performed 1 year(s) and 3 month(s) ago. Patient History: Menarche at age 9. First Full-Term at age 24. Hysterectomy at age 44. Patient used Hormonal Contraceptives for 4 years. Risk Values: Pat 5 year model risk: 1.8%. NCI Lifetime model risk: 8.6%. Prior Study Comparison: 07/06/2021 Left Diagnostic Mammogram, [facility]. 10/29/2021 Bilateral Diagnostic Mammogram, [facility]. 05/09/2023 Bilateral MG 3D diag mammo w/cad [facility], [facility]. Tissue Density: The breasts are almost entirely fatty. Findings: Analyzed By CAD. The pattern is symmetrical. There is a benign-appearing calcification within the right breast. No suspicious groups of microcalcifications, spiculated or lobular masses, architectural distortion or other secondary signs of malignancy are mammographically apparent. Overall Assessment: Benign, BI-RAD 2 Management: Screening Mammogram of both breasts in 1 year. A negative mammogram report should not preclude additional follow up of suspicious palpable abnormalities. Patient should continue monthly self breast exam. A clinical breast exam by your physician is recommended on an annual basis and results should be correlated with mammographic findings. Note on Pat scores and lifetime risk: 1. A Pat score greater than 3% is considered moderate risk. If this is the case, consider specialist referral to assess eligibility for a risk reducing agent. 2. If overall lifetime risk for the development of breast cancer is 20% or higher, the patient may qualify for future screening with alternating mammogram and breast MRI. [facility], , 07/28/2024 5:26 PM. Electronically signed and approved by: Quinten Hinojosa D.O. Radiologis
== END | disposition home or self-care (01) ==
LOC: RADMAMWWP 08:45
PROVIDERS: ATTEND Family Medicine
DX: Z12.31 Encounter for screening mammogram for malignant neoplasm of breast (principal)
CPT/HCPCS: 77063; 77067